=== PATIENT | male | born 1995 | race Caucasian/White ===

== ENCOUNTER 2017-02-14 12:52 | Emergency (ER) | payer OTHER ==
[~2017-02-14 12:52] MED LIST: AMOXICILLIN500 M1 PO
== END 2017-02-14 13:50 | disposition home or self-care (01) ==
LOC: CED 12:52 → CFTX 12:52
DX: J03.90 Acute tonsillitis, unspecified (principal); R11.0 Nausea; R42 Dizziness and giddiness; Z79.2 Long term (current) use of antibiotics
CPT/HCPCS: 99282

== ENCOUNTER 2017-04-16 13:55 | Emergency (ER) | payer OTHER ==
[~2017-04-16] VITALS: Ht 175.3 cm; Wt 78.5 kg
--- NOTE | ~2017-04-16 | CT71 ---
[facility] A Service [facility] RADIOLOGY TEXT RESULTS PATIENT: PINA CHAPA LOCATION: [place] : 95 UNIT #: [id number] AGE: [address]: Emma Rudd SEX: M ORDER DR: [id number] [address] [address] [id number] E MR#: [id number] Acc #: [id number] NAME: PINA CHAPA : 1995 SEX: M STUDY DATE/TIME: 04/16/2017 15:51 UNIT: CFTX ROOM: STUDY DESCRIPTION: CT Head Wo Contrast Attending Physician: Emma Rudd Pa-C Ordering Physician: Ed Doctor [id number] [facility] Primary Care Physician: Primary Care Physician No MEDICAL IMAGING REPORT This report is preliminary unless electronic signature is present EXAM CT head without contrast 04/16/2017 HISTORY 21-year-old male with head pain status post fall down stairs today. COMPARISON STUDIES None. TECHNIQUE Routine unenhanced axial images performed through the brain. This CT exam was performed with one or more of the following radiation dose reduction techniques: automatic exposure control, adjustment of mA and/or kV according to patient size, and iterative reconstruction. FINDINGS No hemorrhage, acute infarction, mass lesion, or abnormal extraaxial fluid collection. No midline shift or focal mass effect. Ventricular system normal in size and configuration. Mild right frontal scalp soft tissue swelling and supraorbital soft tissue swelling. No acute bony abnormality. Visualized paranasal sinuses and mastoid air cells are clear. IMPRESSION 1. No acute intracranial abnormality. 2. Mild right supraorbital and right frontal scalp soft tissue swelling. No acute bony abnormality. Dictated by... William Muir M.D. [facility] A Service [facility] RADIOLOGY TEXT RESULTS PATIENT: PINA CHAPA LOCATION: [place] : 95 UNIT #: [id number] AGE: [address]: Emma Rudd SEX: M ORDER DR: THIS IS AN ELECTRONICALLY VERIFIED REPORT William Muir M.D. at 04/19/2017 2:07 PM ESTEFANIA/ana maría TD: 04/16/2017 23:25 JOB #: [id number] MEDICAL IMAGING REPORT Page 1 of 1 COPY
--- NOTE | ~2017-04-16 | CR181 ---
[facility] A Service of [facility] RADIOLOGY TEXT RESULTS PATIENT: PINA CHAPA LOCATION: [facility] : 95 UNIT #: [id number] AGE: [address]: Emma Rudd SEX: M ORDER DR: [id number] [facility] [address] [place], [place] [address] [id number] E MR#: [id number] Acc #: [id number] NAME: PINA CHAPA : 1995 SEX: M STUDY DATE/TIME: 04/16/2017 15:35 UNIT: CFTX ROOM: STUDY DESCRIPTION: CR Lumbar Spine 2 or 3 Views Attending Physician: Emma Rudd Pa-C Ordering Physician: Ed Doctor [id number] [facility] Primary Care Physician: Primary Care Physician No MEDICAL IMAGING REPORT This report is preliminary unless electronic signature is present EXAM Lumbar spine series 04/25 HISTORY Trauma. Fell down spiral staircase today. Low back pain. TECHNIQUE AP and 2 lateral views of the lumbar spine are presented. COMPARISON STUDIES The study viewed with prior chest radiograph. FINDINGS There are 12 rib-bearing vertebral segments on prior chest radiograph. There is a somewhat sacralized L5 vertebral segment. There is no indication of traumatic fracture or malalignment. There may be minimal, perhaps 1 mm, retrolisthesis of L4 on L5. Vertebral body heights are normal. Moderate narrowing L5-S1. Waoo-on-cghdsond facet degenerative changes L4-L5 and L5-S1. Visualized bony pelvis is intact. Lower thoracic spine unremarkable. Visualized lung bases clear. Visualized bowel gas pattern normal. Dictated by... Yuri Arriaza M.D. THIS IS AN ELECTRONICALLY VERIFIED REPORT Yuri Arriaza M.D. at 04/17/2017 9:25 PM TAY/ana maría TD: 04/16/2017 23:08 [facility] A Service of [facility] RADIOLOGY TEXT RESULTS PATIENT: PINA CHAPA LOCATION: [place] : 95 UNIT #: [id number] AGE: [address]: Emma Rudd SEX: M ORDER DR: JOB #: [id number] MEDICAL IMAGING REPORT Page 1 of 1 COPY
--- NOTE | ~2017-04-16 | CT101 ---
[facility] A Service of [facility] RADIOLOGY TEXT RESULTS PATIENT: PINA CHAPA LOCATION: [facility] : 95 UNIT #: [id number] AGE: [address]: Emma Rudd SEX: M ORDER DR: [id number] [facility] [address] [place], [place] [address] [id number] E MR#: [id number] Acc #: [id number] NAME: PINA CHAPA : 1995 SEX: M STUDY DATE/TIME: 04/16/2017 15:29 UNIT: CFTX ROOM: STUDY DESCRIPTION: CT Maxillofacial Area Wo Cont Attending Physician: Emma Rudd Pa-C Ordering Physician: Ed Doctor [id number] [facility] Primary Care Physician: No Primary Care Physician MEDICAL IMAGING REPORT This report is preliminary unless electronic signature is present EXAM CT maxillofacial area, 04/16/2017 HISTORY Fell hit head, lower back pain down 5 stairs, knot over the right orbit, abrasion over right orbit about 10:00 a.m. today. TECHNIQUE This CT exam was performed with one or more of the following radiation dose reduction techniques: automatic exposure control, adjustment of mA and/or kV according to patient size, and iterative reconstruction. FINDINGS CT facial bones performed. Bone and soft tissue windows reviewed. Coronal reconstructions performed. Please see dedicated CT head for full discussion of brain. The visualized portions of brain on this examination showed no gross acute abnormality. The intraorbital soft tissue are unremarkable. There is mild soft tissue swelling in the right paracentral forehead without soft tissue biopsy, subcutaneous air or radiodense foreign body. The remainder of superficial facial soft tissues show no acute abnormality. The visualized paranasal sinuses and mastoid air cells notable for mucosal thickening in the bilateral maxillary sinuses. Nasopharyngeal oral pharyngeal, pharyngeal mucosal retropharyngeal spaces larynx unremarkable. Visualized thyroid submandibular parotid glands unremarkable. No adenopathy. Visualized calvaria intact. The nasal bones are intact. Orbital bony structures are intact. Nasal septum shows minimal deviation to the right. The ostiomeatal complexes are patent. The zygomas, zygomatic arches, pterygoid plates intact. Mandible intact. Scattered dental fillings with resulting streak artifact. IMPRESSION 1. No fracture. [facility] A Service of [facility] & [facility] RADIOLOGY TEXT RESULTS PATIENT: PINA CHAPA LOCATION: [facility] : 95 UNIT #: [id number] AGE: [address]: Emma Rudd SEX: M ORDER DR: 2. Mild right paracentral forehead soft tissue swelling without soft tissue defect, subcutaneous air or radiodense foreign body. 3. Mild mucosal thickening in the maxillary sinuses. There is no evidence of acute sinusitis. 4. See remainder of findings in body of report above. Dictated by... uYri Arriaza M.D. THIS IS AN ELECTRONICALLY VERIFIED REPORT Yuri Arriaza M.D. at 04/17/2017 9:25 PM Koko TD: 04/17/2017 00:07 JOB #: [id number] MEDICAL IMAGING REPORT Page 1 of 1 COPY
== END 2017-04-16 16:48 | disposition home or self-care (01) ==
LOC: CFTX 13:55 → CED 13:55 → CFTX 16:15
DX: S39.012A Strain of muscle, fascia and tendon of lower back, initial encounter (principal); S00.83XA Contusion of other part of head, initial encounter; Z79.2 Long term (current) use of antibiotics; W10.9XXA Fall (on) (from) unspecified stairs and steps, initial encounter; Y92.69 Other specified industrial and construction area as the place of occurrence of the external cause; Y93.89 Activity, other specified; Y99.0 Civilian activity done for income or pay
CPT/HCPCS: 70450; 70486; 72100; 99284